=== PATIENT | female | born 1960 | race American Indian/Alaskan Native ===

== ENCOUNTER 2020-06-29 01:21 | Emergency (ER) | payer SELFPAY ==
[2020-06-29 02:08] VITALS: BP 120/91
--- NOTE | 2020-06-29 02:16 | Emergency Department Report ---
Chief Complaint: Dental/Oral Stated Complaint: TOOTH PAIN Time Seen by Provider: 06/29/20 02:07 - HPI History of Present Illness: Patient is a 59-year-old female presents emergency room with complaints of left upper dental pain that began a week ago but increased last night. She states that she has an upcoming appointment with a dentist on 07/11/2020. She states that she last saw a dentist approximately within the last year. She denies any fever, nausea, vomiting, diarrhea, facial swelling, difficulty swallowing, difficulty breathing. Past medical history of hypertension. No allergies to medications. Vitals are normal On exam: Non toxic appearing, no acute distress atraumatic, normocephalic normal appearance of the eyes, , EOMI, no periorbital edema or ecchymosis moist mucus membranes, normal oropharynx, appears to have multiple dental caries, no induration or edema of the gumline, no facial edema, uvula is midline, no uvular edema or deviation, no trismus, no muffled voice, no tongue elevation, no submandibular edema No respiratory distress, no accessory muscle use A&O x4, no focal neuro deficit skin is warm, dry, intact Examination appears consistent with dental carry There is no signs of infected dental caries, significant gingivitis, Ludwigs at this time Advised patient May alternate ibuprofen or Tylenol as needed for discomfort. May gargle with warm salt water. May use Orajel [id number]. Follow-up with a dentist. it is very important that you follow-up. Return to emergency room for any new or worsening symptoms. Discussed strict return precautions with patient Medical screening examination performed and there is no threat to life or limb at this time - Exam Vital Signs: Vital Signs 06/29/20 02:06 Temperature 98 F Pulse Rate 81 Respiratory 18 Rate Blood Pressure 120/91 [Left] O2 Sat by Pulse 100 Oximetry MSE screening note: Focused history and physical exam performed. Due to findings the following was ordered: ED Disposition for MSE Clinical Impression: Dental caries Disposition: Z-07 MED SCREENING EXAM-LEFT Is pt being admited?: No Does the pt Need Aspirin: No Condition: Stable Additional Instructions: May alternate ibuprofen or Tylenol as needed for discomfort. May gargle with warm salt water. May use Orajel [id number]. Follow-up with a dentist. it is very important that you follow-up. Return to emergency room for any new o r worsening symptoms. Referrals: PRIMARY CARE, [Primary Care Provider] - 2-3 Days [facility] [Outside] - 2-3 Days [facility] [Outside] - 2-3 Days Time of Disposition: 02:15 Print Language: SAMOAN
== END 2020-06-29 02:33 | disposition left against medical advice (07) ==
LOC: ED 01:21
DX: K08.89 Other specified disorders of teeth and supporting structures (principal); Z53.21 Procedure and treatment not carried out due to patient leaving prior to being seen by health care provider